=== PATIENT | female | born 1945 | race Caucasian/White ===

== ENCOUNTER 2018-12-27 10:42 | Emergency (ER) | payer MEDICARE, BC ==
--- NOTE | 2018-12-27 12:58 | EDM.PDOC ---
ED HPI GENERAL MEDICAL PROBLEM - General Chief Complaint: Lower Extremity Injury/Pain Stated Complaint: FELL AND INJURED LEFT ANKLE Time Seen by Provider: 12/27/18 12:31 Source of Information: Reports: Patient History Limitations: Reports: No Limitations - History of Present Illness INITIAL COMMENTS - FREE TEXT/NARRATIVE: 73 to female presents to ER with complaint of left ankle pain. she was stepping from boat to dock and fell injuring her left ankle, no other injuries noted. Left Ankle Pain Score (Numeric/FACES): 3 - Related Data Allergies Allergy/AdvReac Type Severity Reaction Status Date / Time No Known Allergies Allergy Verified 12/27/18 12:20 Home Meds: Home Meds Cetirizine HCl [Zyrtec] 5 mg PO BID 12/27/18 [History] Multivitamin [Multi-Vitamin Daily] 0.5 tab PO DAILY 12/27/18 [History] atorvaSTATin [Lipitor] 20 mg PO BEDTIME 12/27/18 [History] Past Medical History HEENT History: Reports: Hard of Hearing, Impaired Vision Cardiovascular History: Reports: High Cholesterol Hematologic History: Reports: Blood Transfusion(s) Social & Family History - Tobacco Use Smoking Status *Q: Never Smoker - Caffeine Use Caffeine Use: Reports: Coffee - Recreational Drug Use Recreational Drug Use: No Review of Systems - Review of Systems Review Of Systems: See Below Constitutional: Denies: Chills, Fever Respiratory: Denies: Shortness of Breath Cardiovascular: Denies: Chest Pain ED EXAM, GENERAL - Physical Exam Exam: See Below Exam Limited By: No Limitations General Appearance: Alert, WD/WN, No Apparent Distress Respiratory/Chest: No Respiratory Distress Extremities: Joint Swelling (left ankle, moderate edema), Other (tender lateral aspect of ankle, cms of foot intact) Skin Exam: Warm, Dry, Intact Course - Vital Signs Last Recorded V/S: Last Vital Signs Temp 35.3 C 12/27/18 12:22 Pulse 57 L 12/27/18 12:22 Resp 20 12/27/18 12:22 BP 150/70 H 12/27/18 12:22 Pulse Ox 99 12/27/18 12:22 - Orders/Labs/Meds Orders: Active Orders 24 hr Category Date Time Status Ankle Min 3V Lt [CR] Stat Exams 12/27/18 12:47 Taken - Radiology Interpretation Free Text/Narrative:: distal fibula fracture Departure - Departure Time of Disposition: 13:02 Disposition: Home, Self-Care 01 Condition: Good Clinical Impression: Fracture of fibula - Discharge Information *PRESCRIPTION DRUG MONITORING PROGRAM REVIEWED*: Not Applicable *COPY OF PRESCRIPTION DRUG MONITORING REPORT IN PATIENT FLORA: Not Applicable Instructions: Fibular Fracture Rehab-SportsMed Referrals: PCP,None [Primary Care Provider] - Forms: ED Department Discharge Additional Instructions: nonweight bearing without the CAM walker on ice as much as possible over the next 72 hours Orthopedics will be calling you on Sunday if you have not heard from them by Sunday afternoon call them Naproxen 2 tablets twice daily may use acetaminophen 1000 mg every 6 hours not to exceed 3000 mg in 24 hour period of time - My Orders Last 24 Hours: My Active Orders 12/27/18 12:47 Ankle Min 3V Lt [CR] Stat - Assessment/Plan Last 24 Hours: My Active Orders 12/27/18 12:47 Ankle Min 3V Lt [CR] Stat
--- NOTE | 2018-12-27 13:47 | CRLCR ---
INDICATION: Left ankle injury. TECHNIQUE: Three views of the left ankle. COMPARISON: None. FINDINGS: Acute nondisplaced fracture of the distal fibula. No other fracture or subluxation. Marked soft tissue swelling laterally. IMPRESSION: Acute nondisplaced distal fibular fracture. Dictated by Sukumar Brandt MD @ Dec 27 2018 1:43PM Signed by Dr. Sukumar Brandt @ Dec 27 2018 1:46PM
== END 2018-12-27 13:36 | disposition home or self-care (01) ==
LOC: JP.ED 10:42
DX: S82.832A Other fracture of upper and lower end of left fibula, initial encounter for closed fracture (principal); Z79.899 Other long term (current) drug therapy; E78.00 Pure hypercholesterolemia, unspecified; W17.89XA Other fall from one level to another, initial encounter
CPT/HCPCS: 73610-LT; 99283; 99283-25